=== PATIENT | female | born 1945 ===

== ENCOUNTER 2023-01-13 06:14 | Inpatient (IN) | payer OTHER, MEDICAID ==
[~2023-01-13] VITALS: Ht 162.6 cm; Wt 66.0 kg
[2023-01-13] VITALS (25 sets, daily range): BP systolic 45–131; BP diastolic 30–73
[2023-01-13] MEDS ORDERED: EPINEPHrine HCL 250 ML IV ONE (06:28)
[2023-01-13] MEDS ORDERED: NOREPINEPHRINE 8 MG/250ML KIT 250 ML IV ONE (06:29)
[2023-01-13] MEDS ORDERED: SODIUM BICARBONATE 8.4 % INJ 50ML VIAL IV ONE ×3 (06:35→14:45)
[2023-01-13] MEDS ORDERED: MIDAZOLAM DRIP 50 mg/50mL 50 ML IV ONE (06:37)
[2023-01-13] MEDS ORDERED: MIDAZOLAM DRIP 50 mg/50mL 50 ML IV SCH (06:45)
[2023-01-13 07:12] LABS: Calcium 9.2 mg/dL (8.5-10.1); Potassium 4.8 mmol/L (3.5-5.1)
[2023-01-13] MEDS: EPINEPHrine HCL 250 ML IV SCH ×3 (07:14→23:32)
[2023-01-13] MEDS: NOREPINEPHRINE 8 MG/250ML KIT 250 ML IV SCH ×2 (07:14→20:38)
[2023-01-13 07:19] LABS: INR 1.86 (0.9-1.15)
[2023-01-13 07:21] LABS: BUN/Creatinine Ratio 14.6 (10.0-20.0); Bilirubin, Total 0.3 mg/dL (0.2-1.0); Total Protein 4.4 g/dL (6.4-8.2)
[2023-01-13 07:28] LABS: Hematocrit 32.3 % (36.0-46.0)
[2023-01-13 07:29] LABS: Hemoglobin 9.9 g/dL (12.2-16.2); Mean Corpuscular Hemoglobin 30.4 pg (28.0-32.0); Mean Corpuscular Hgb Conc. 30.6 g/dL (32.0-36.0); Mean Corpuscular Volume 99.4 fL (80.0-100.0); Red Blood Cells 3.25 10^6/uL (4.0-5.20); White Blood Cell 13.5 10^3/uL (4.4-10.8)
[2023-01-13 07:33] LABS: Basophils % (manual) 0 (0.0-2.0); Blast Cells 0; Eosinophils % (manual) 0 (0-7); Promyelocytes % 0; Reactive Lymphocytes 0
[2023-01-13] MEDS: VASOPRESSIN 40 UNITS in D5W 5% 198 ML IV SCH ×6 (07:40→23:35)
[2023-01-13 07:45] LABS: Partial Thromboplastin Time 132.9 SEC (24.5-34.5)
[2023-01-13 09:26] LABS: Band Neutrophils % (manual) 10; Lymphocytes % (manual) 26 (10.0-50.0); Metamyelocytes % 4; Monocytes % (manual) 18 (0-12); Myelocytes % 7
[2023-01-13] MEDS ORDERED: SODIUM BICARBONATE 50ML VIAL 50 ML in SOD CHL 0.45% 1,000 ML IV SCH (14:45)
[2023-01-13] MEDS ORDERED: NITROGLYCERIN 0.4 MG SL TAB SL PRN (14:45)
[2023-01-13] MEDS ORDERED: MORPHINE SULFATE INJ 2 MG/ml SYRG IV PRN (14:45)
[2023-01-13] MEDS ORDERED: ACETYLCYSTEINE 200MG/ML IV SOL 10,200 MG in D5W 5% 250 ML IV ONE (15:15)
[2023-01-13] MEDS ORDERED: HYDROmorphone HCL 2 MG/ML VL/or syr IV PRN (15:15)
[2023-01-13 15:27] LABS: Hematocrit 43.1 % (36.0-46.0); Hemoglobin 13.3 g/dL (12.2-16.2); Mean Corpuscular Hgb Conc. 30.8 g/dL (32.0-36.0); Mean Corpuscular Volume 94.1 fL (80.0-100.0); Red Blood Cells 4.58 10^6/uL (4.0-5.20); Red Cell Distribution Width 15.5 % (11.8-14.3)
[2023-01-13 15:49] LABS: Albumin 1.9 g/dL (3.4-5.0); Calcium 7.4 mg/dL (8.5-10.1); Magnesium 2.6 mg/dL (1.6-2.6); Potassium 4.9 mmol/L (3.5-5.1)
[2023-01-13 15:51] LABS: Lactic Acid w/Reflex 12.2 mmol/L (0.4-2.0)
[2023-01-13 15:54] LABS: Bilirubin, Total 0.8 mg/dL (0.2-1.0); Total Protein 4.5 g/dL (6.4-8.2)
[2023-01-13] MEDS ORDERED: ACETYLCYSTEINE 200MG/ML IV SOL 3,400 MG in D5W 5% 500 ML IV ONE (16:15)
[2023-01-13 16:20] LABS: BUN/Creatinine Ratio 14.3 (10.0-20.0)
[2023-01-13 16:27] LABS: Basophils % (manual) 0 (0.0-2.0); Blast Cells 0; Eosinophils % (manual) 0 (0-7); Promyelocytes % 0; Reactive Lymphocytes 0; White Blood Cell 34.3 10^3/uL (4.4-10.8)
[2023-01-13 16:53] LABS: Phosphorus 9.1 mg/dL (2.5-4.90)
[2023-01-13 17:04] LABS: Band Neutrophils % (manual) 4; Lymphocytes % (manual) 16 (10.0-50.0); Metamyelocytes % 1; Monocytes % (manual) 5 (0-12); Myelocytes % 1
[2023-01-13] MEDS: DOPamine 1600MCG/ML D5W 250 ML IV SCH ×2 (17:07→23:33)
[2023-01-13] MEDS: PHENYLEPHRINE INJ 80 MG in SODIUM CHL 0.9% 242 ML IV SCH (17:07)
[2023-01-13 17:27] LABS: Partial Thromboplastin Time 63.5 SEC (24.5-34.5)
[2023-01-13 17:32] LABS: INR 4.17 (0.9-1.15)
[2023-01-13] MEDS: SODIUM CHLORIDE 0.9% 1,000 ML IV SCH ×2 (18:36→23:35)
[2023-01-13] MEDS: ACETYLCYSTEINE 200MG/ML IV SOL 6,800 MG in D5W 5% 1,000 ML IV SCH ×2 (20:23→22:22)
[2023-01-13] MEDS ORDERED: DOPamine 1600MCG/ML D5W 250 ML IV ONE (20:43)
[2023-01-14] VITALS (11 sets, daily range): BP systolic 32–94; BP diastolic 15–53
[2023-01-14] MEDS: PHENYLEPHRINE INJ 80 MG in SODIUM CHL 0.9% 242 ML IV SCH (00:10)
[2023-01-14] MEDS: NOREPINEPHRINE 8 MG/250ML KIT 250 ML IV SCH (00:56)
[2023-01-14] MEDS: SODIUM CHLORIDE 0.9% 1,000 ML IV SCH (01:12)
[2023-01-14] MEDS: VASOPRESSIN 40 UNITS in D5W 5% 198 ML IV SCH (01:45)
[2023-01-14] MEDS ORDERED: PANTOPRAZOLE 40 MG/10 ML VIAL INJ IV SCH (10:00)
[2023-01-14] MEDS ORDERED: CEFEPIME 1GM/ 50ML 50 ML IV SCH (10:00)
== END 2023-01-14 02:37 | DRG 871 ==
LOC: EDBD 06:14 → ER 06:14 → TELE 14:51 → ICU WEST 16:10
PROVIDERS: ADMIT Nurse Practitioner Family; ATTEND Nurse Practitioner Family
PROC: 5A1935Z Respiratory Ventilation, Less than 24 Consecutive Hours (ICD-10-PCS; principal; 2023-01-13)
PROC: 0BH17EZ Insertion of Endotracheal Airway into Trachea, Via Natural or Artificial Opening (ICD-10-PCS; 2023-01-13)
PROC: 5A12012 Performance of Cardiac Output, Single, Manual (ICD-10-PCS; 2023-01-13)
PROC: 30233N1 Transfusion of Nonautologous Red Blood Cells into Peripheral Vein, Percutaneous Approach (ICD-10-PCS; 2023-01-13)
PROC: 30233K1 Transfusion of Nonautologous Frozen Plasma into Peripheral Vein, Percutaneous Approach (ICD-10-PCS; 2023-01-13)
DX: A41.9 Sepsis, unspecified organism (principal); J96.01 Acute respiratory failure with hypoxia; J96.02 Acute respiratory failure with hypercapnia; K72.00 Acute and subacute hepatic failure without coma; R65.21 Severe sepsis with septic shock; E87.29 Other acidosis; N17.9 Acute kidney failure, unspecified; I46.9 Cardiac arrest, cause unspecified; D64.9 Anemia, unspecified; E11.22 Type 2 diabetes mellitus with diabetic chronic kidney disease; N18.9 Chronic kidney disease, unspecified; Z85.3 Personal history of malignant neoplasm of breast
CPT/HCPCS: 36415; 36430; 36556; 36600; 71045; 80053; 80320; 82805; 83605; 83735; 84100; 84484; 85007; 85027; 85610; 85730; 86850; 86900; 86901; 86920; 87070; 87077; 87081; 87186; 87205; 92950; 93005; 93306; 94002; 99291; G0378; J0171; J2250; J7060